=== PATIENT | male | born 1970 | race African-American/Black ===

== ENCOUNTER 2021-05-17 15:03 | Emergency (ER) | payer OTHER, SELFPAY ==
--- NOTE | ~2021-05-17 | CT_ITS ---
EXAMINATION: CT cervical spine wo con DATE: 05/17/2021 18:23 INDICATION: Neck pain TECHNIQUE: Computed tomography (CT) of the cervical spine was performed without intravenous contrast. The dose-length product was 469 mGy-cm. Automated exposure control and iterative reconstruction tech [employer] were employed. COMPARISON: None FINDINGS: Straightening of cervical lordosis. There is mild disc narrowing at C5-6. Odontoid process is within normal limits. There is mild uncinate degenerative change at C4-5 and C5-6. Lung apices are unremarkable. Mastoids are pneumatized. No acute fracture or traumatic malalignment. Craniovertebral junction is normal. IMPRESSION: 1. Mild cervical spondylosis with reversal of cervical lordosis, likely due to muscle spasm. Reviewed, dictated and finalized at location A. WIRE TAPER
--- NOTE | ~2021-05-17 | XR_ITS ---
XR shoulder LT min 2V 05/17/2021 18:14 Indication: Left shoulder pain for 3 months Procedure: 4 views left shoulder Comparison: No prior studies for comparison. Findings: No fracture, subluxation or dislocation. No significant soft tissue abnormality. No foreign bodies. There is anatomic alignment. Impression: 1: No acute bone or joint abnormality. Reviewed, dictated and finalized at location A. LE MARKER Impression: 1: No acute bone or joint abnormality.
--- NOTE | ~2021-05-17 | XR_ITS ---
EXAMINATION: XR chest 1V portable 05/17/2021 18:13 INDICATION: Chest pain and hypertension. PROCEDURE: PA view of the chest COMPARISON: No prior studies for comparison. FINDINGS: The lungs are clear. The cardiomediastinal silhouette is within normal limits. There are no pleural effusions. There is no pneumothorax suspected. IMPRESSION: 1: NO ACUTE CARDIOPULMONARY DISEASE. Reviewed, dictated and finalized at location A. HANGER
[2021-05-17 15:13] VITALS: BP 170/109; PULSE 84; RESP 18; TEMP 36.8; O2SAT 98
--- NOTE | 2021-05-17 15:19 | ECG_ITS ---
Measurements Intervals [place] Rate: 78 P: 26 OR: 168 QRS: 22 QRSD: 90 T: 8 QT: 355 QTc: 404 Interpretive Statements SINUS RHYTHM NONSPECIFIC ST ELEVATION IN DIFFUSE LEADS BASELINE ARTIFACT- II, III, AVR, AVL, AVF, V6 BORDERLINE ECG Electronically Signed On 05-17-2021 15:30:21 FILM SPOOLER by Ander Oneill D.O.
[2021-05-17 16:38] VITALS: BP 161/113; PULSE 73; RESP 18; O2SAT 96
[2021-05-17 16:50] VITALS: BP 161/113; PULSE 76; RESP 18; O2SAT 97
--- NOTE | 2021-05-17 18:09 | ED.GENADULT ---
HPI - General Adult General Chief complaint: Recheck/Abnormal Lab/Rx Stated complaint: Elevated BP, ,Pain from shoulder to hand Time Seen by Provider: 05/17/21 17:18 Source: patient Mode of arrival: ambulatory Limitations: no limitations History of Present Illness HPI narrative: Patient is 50 years old -[place] male presented to the ED complaining of elevated blood pressure in the last few days. Patient on amlodipine 10 mg once a day. Patient report pain at the left shoulder and left upper extremity down to the hand for the last 3 months worse when he relaxed and sleep. Patient usually wake up in the morning with severe pain , fingers are spastic, locked and stuck to each other and within 3 minutes will be able to move again. The upper extremity and left hand pain getting better with activity during daytime, patient denies any trauma, headache, chest pain. Patient works as a local tanker truck driver. Patient is up-to-date for Covid vaccination. Patient does not smoke, drinks daily, does not use drugs Related Data Home Medications Medication Instructions Recorded Confirmed amlodipine 10 mg PO DAILY 05/17/21 05/17/21 Allergies Allergy/AdvReac Type Severity Reaction Status Date / Time No Known Allergies Allergy Verified 05/17/21 16:41 Review of Systems Review of Systems: CONSTITUTIONAL: Denies fever, chills, or sweats. EYES: Denies visual changes, redness, or discharge. ENT: Denies rhinorrhea, congestion, sore throat, or otalgia. CARDIOVASCULAR: Denies chest pain, palpitations, or edema. RESPIRATORY: Denies cough or dyspnea. GASTROINTESTINAL: Denies abdominal pain, nausea, vomiting, or diarrhea. GENITOURINARY: Denies dysuria or hematuria. SKIN: Denies rash or itching. MUSCULOSKELETAL: Denies back pain, joint pain, or myalgia. NEUROLOGIC: Denies headache, numbness, or weakness. PSYCHIATRIC: Denies anxiety or depression. Exam Narrative: General appearance: Well-developed, well-nourished Skin: Normal color Head: Normocephalic, nontraumatic Eyes: Clear conjunctiva ENT: Oropharynx normal, ears normal, nose normal Neck: Supple, nontender Chest and respiratory: Airway patent, no respiratory distress, no accessory muscle use Heart: Regular rate/rhythm Abdomen: Soft, nontender, no organomegaly, quiet bowel sounds Vascular: Normal peripheral pulses, normal capillary refill. Musculoskeletal: Painful range of motion of left upper extremity, diffuse tenderness of the left shoulder and supra clavicular area. There is no bruises, swelling or erythema. Neurologic: Alert and oriented ?3, [employer] is normal as tested, no gross motor deficit Course Course Emergency Course: Stable Vital Signs Vital signs: Vital Signs Temperature 36.8 C 05/17/21 15:13 Pulse Rate 84 05/17/21 15:13 Respiratory Rate 18 05/17/21 15:13 Blood Pressure 170/109 H 05/17/21 15:13 Pulse Oximetry 98 05/17/21 15:13 Temperature 36.8 C 05/17/21 15:13 Pulse Rate 76 05/17/21 16:50 Respiratory Rate 18 05/17/21 16:50 Blood Pressure 161/113 H 05/17/21 16:50 Pulse Oximetry 97 05/17/21 16:50 Medical Decision Making MDM Narrative Medical decision making narrative: Uncontrolled hypertension probably secondary to chronic pain of the left shoulder and upper extremity, lack of sleep, lack of rest and insomnia. Left shoulder pain high likely secondary to rotator cuff injury/syndrome. Labs ordered, CT cervical spine and x-ray left shoulder ordered. Further plan to follow Differential Diagnosis Differential Diagnosis: Uncontrolled hypertension, depression, anxiety, rotator cuff injury Vital Signs Vital Signs: Vital Signs Temperature 36.8 C 05/17/21 15:13 P
[2021-05-17] MEDS: cloNIDine HCL 0.1 MG TABLET PO (18:18)
[2021-05-17 18:19] VITALS: BP 156/109; PULSE 80; RESP 20; O2SAT 97
[2021-05-17 18:40] LABS: Basophils Percent Auto 0.2 % (0.2-1.2); Eosinophils Absolute Auto 0.1 K/mm3 (0-0.3); Eosinophils Percent Auto 1.8 % (0-4.4); Hematocrit 45.1 % (42.0-52.0); Hemoglobin 15.3 g/dL (14.0-18.0); Immature Granulocyte Absolute 0.01 K/mm3 (0.00-0.031); Immature Granulocyte Percent A 0.2 % (0-0.5); Lymphocytes Percent Auto 34.4 % (18.3-44.2); Mean Corpuscular HGB Conc 33.9 g/dl (32-36); Mean Corpuscular Hemoglobin 30.2 pg (26-34); Mean Corpuscular Volume 89.1 fl (80-100); Mean Platelet Volume 10.1 fl (7.4-10.4); Monocytes Absolute Auto 0.3 K/mm3 (0.1-0.6); Monocytes Percent Auto 7.3 % (2.6-8.5); Neutrophils Absolute Auto 2.4 K/mm3 (1.3-6.7); Neutrophils Percent Auto 56.1 % (45.5-73.1); Platelet Count Result 250 k/mm3 (150-375); Red Blood Count 5.06 M/mm3 (4.6-6.20); Red Cell Distribution Width 12.6 % (11.5-14.5); White Blood Count 4.4 K/mm3 (4.5-10.0)
[2021-05-17 18:58] LABS: Alanine Aminotransferase 24 U/L (4-50); Albumin Level 4.9 g/dL (3.5-5.1); Alkaline Phosphatase 53 U/L (38-126); Anion Gap 12 mmol/L (8-16); Aspartate Amino Transferase 34 U/L (17-59); Bilirubin,Total 1.3 mg/dL (0.2-1.3); Blood Urea Nitrogen 15 mg/dL (9-20); Calcium 9.7 mg/dL (8.4-10.2); Carbon Dioxide 23 mmol/L (22-30); Chloride 102 mmol/L (98-107); Estimated CRCL calculation 73 ml/min; Estimated Glomerular Filt Rate > 60; Glucose 92 mg/dL (65-110); Potassium 3.8 mmol/L (3.4-5.0); Sodium 137 mmol/L (137-145)
[2021-05-17 19:07] LABS: Troponin I < 0.012 ng/mL (0.000-0.034)
[2021-05-17 19:22] VITALS: BP 155/116; PULSE 78; RESP 25; O2SAT 98
== END 2021-05-17 19:24 | disposition home or self-care (01) ==
PROVIDERS: Emergency Provider Emergency Medicine
DX: I10 Essential (primary) hypertension (principal); M25.512 Pain in left shoulder; M47.812 Spondylosis without myelopathy or radiculopathy, cervical region; R94.31 Abnormal electrocardiogram [ECG] [EKG]
CPT/HCPCS: 36415; 71045; 72125; 73030; 80053; 84484; 85025; 93005; 99284; A9270